=== PATIENT | male | born 1985 | race Caucasian/White ===

== ENCOUNTER → 2017-11-15 | Outpatient (CLI) | payer BC ==
--- NOTE | 2017-11-15 10:06 | Diagnostic Imaging Report ---
PROCEDURE: MRI left joint lower extremity without contrast. TECHNIQUE: Multiplanar, multisequence non contrast-enhanced MRI of the left lower extremity was accomplished. INDICATION: Knee pain. There are no prior studies available for comparison. FINDINGS: There is a linear area of increased signal extending through the inferior articular surface of the posterior horn of the medial meniscus on sagittal proton dense fat-saturated series. This would be consistent with a tear. The lateral meniscus is intact. The anterior and posterior cruciate ligaments, quadriceps and infrapatellar tendons and the collateral ligaments, the biceps femoris tendon and iliotibial band are intact. There is no sign of injury to either the medial or lateral retinaculum. There is no abnormal signal arising from the osseous structures to suggest bone edema or fracture. There is no significant joint effusion present. There is no sign of a Carvajal's cyst. IMPRESSION: 1. The posterior horn of the medial meniscus is torn. 2. The lateral meniscus and the major ligaments and tendons are intact. 3. There is no acute bony abnormality identified. Dictated on workstation # [id number]
== END ==
LOC: RAD 08:29
PROVIDERS: ATTEND Nurse Practitioner
DX: S83.242A Other tear of medial meniscus, current injury, left knee, initial encounter (principal)
CPT/HCPCS: 73721